=== PATIENT | female | born 1950 | race Caucasian/White ===

== ENCOUNTER 2018-01-09 20:17 | Outpatient (CLI) | payer MEDICARE, OTHER | END 2018-01-10 07:02 | disposition home or self-care (01) | LOC: SLEEP 20:17 | PROVIDERS: ATTEND Nurse Practitioner | DX: G47.30 Sleep apnea, unspecified (principal); R06.83 Snoring; G47.10 Hypersomnia, unspecified | CPT/HCPCS: 95810 ==

== ENCOUNTER → 2020-05-08 | Outpatient (CLI) | payer MEDICARE, OTHER ==
[~2020-05-08] MED LIST: CATHETER FLUSH 10 ML SYR IV PRN; HOLD METFORMIN - RECEIVED CONTRAST 20 ML VIAL IV SCH; IOHEXOL 350 MG/ML 150 ML (OMNIPAQUE 350) VIAL IV ONE; NS 100 ML (IVPB) BAG IV ONE
--- NOTE | 2020-05-08 16:53 | Diagnostic Imaging Report ---
PROCEDURE: CT angiography of the chest with and without contrast. TECHNIQUE: Noncontrast CT of the chest was performed. Subsequently, after intravenous administration of contrast, thin section axial CT angiography of the chest was performed. 3D MIP reconstructions were made. Auto Exposure Controls were utilized during the CT exam to meet ALARA standards for radiation dose reduction. INDICATION: Low-grade fever, shortness of breath and elevated d-dimer. COMPARISON: None available. FINDINGS: CT ANGIOGRAM: There is no acute aortic abnormality seen on this study performed without cardiac gating. The thoracic aorta is normal in course and caliber, without evidence of dissection, aneurysm or ulcerated plaque. The great vessel origins are patent. Although not optimized for opacification of the pulmonary arteries, no central pulmonary embolism is demonstrated. TRACHEA AND MAIN BRONCHI: Patent without evidence of tracheal or endobronchial lesion. LUNGS AND PLEURA: There is a 3 mm jewell-fissural nodule in the right lower lobe adjacent to the major fissure, possibly a benign intrapulmonary lymph node and of doubtful clinical significance. There is mild linear scarring/atelectasis in the lung bases. The lungs are otherwise clear, without suspicious nodule, pulmonary mass or focal consolidation. No pleural effusion or pneumothorax. MEDIASTINUM AND MALACHI: The visualized thyroid gland is unremarkable. No mediastinal or hilar lymphadenopathy. Esophagus is nondistended. HEART AND VESSELS: Heart is normal in size. No pericardial effusion. Thoracic aorta is nonaneurysmal. DIAPHRAGM AND UPPER ABDOMEN: There is a moderate hiatal hernia. Incidental note is made of a small benign cyst in the right hepatic dome. There is a punctate calyceal calculus in the upper pole collecting system of the left kidney, without findings of hydronephrosis in the upper pole collecting system. CHEST WALL: Unremarkable. BONES: Mild degenerative changes involve the spine. No acute osseous abnormality. IMPRESSION: 1. No acute cardiopulmonary process. No acute aortic abnormality is demonstrated. No evidence of central pulmonary embolism on this study performed for optimization of opacification of the aorta. 2. Chronic and incidental findings are detailed above. Dictated by: Dictated on workstation # [id number]
== END ==
LOC: RAD FS 15:38
PROVIDERS: ATTEND Family Medicine
DX: R79.1 Abnormal coagulation profile (principal); R06.02 Shortness of breath; R50.9 Fever, unspecified
CPT/HCPCS: 71275